=== PATIENT | male | born 1980 | race Caucasian/White ===

== ENCOUNTER 2024-04-01 08:28 | Outpatient (AMB) | payer MEDICAID, SELFPAY ==
[2024-04-01 08:39] VITALS: BP 103/69; PULSE 68; RESP 19; TEMP 36.3; O2SAT 95; BMI 33.7
--- NOTE | 2024-04-01 08:39 | PD.ORTHCLVIS ---
Vital signs 04/01/24 08:39 Height 1.8 m Height Method Stated Weight 109.769 kg Weight Measurement Method Standing Scale BMI 33.7 BP 103/69 Blood Pressure Source Automatic Cuff Blood Pressure Location Left Upper Arm Position Sitting Respiration 19 Pulse 68 Pulse Source Monitor Temp 97.4 F Temp Source Temporal Artery Scan Pulse Oximetry (%) 95 Oxygen Delivery Method Room Air Med/Allergies Allergies & Medications Allergies No Known Allergies Allergy (Verified 04/01/24 08:40) Medication Reconciliation empagliflozin 10 mg tablet (Jardiance) 10 mg PO QAM 04/01/24 [History Confirmed 04/01/24] lisinopril 10 mg tablet 10 mg PO QDAY 04/01/24 [History Confirmed 04/01/24] Exam Exam Patient is in no acute distress and is cooperative with the examination today. Breathing is nonlabored. In no respiratory distress. Patient has no paraspinal tenderness. Spinal deformity cannot be appreciated. The gait of the patient is nonantalgic Bilateral extremities were evaluated and demonstrates sensation intact to light touch. Palpable pedal pulses are present. No significant edema is present. Bilateral knees were examined and the patient has full strength and range of motion.. The right hip was examined. Patient was able to flex to 90 degrees, adduct to 30 degrees, abduct to 40 degrees, internally rotate to 20 degrees, and externally rotate to 20 degrees. Patient has a negative logroll. Stinchfield is negative. The patient is nontender diffusely to touch. The left hip was examined. Patient was able to flex to 90 degrees, adduct to 30 degrees, abduct to 40 degrees, internally rotate to 0 degrees, and externally rotate to 10 degrees. Patient has a positive logroll Assessment and Plan Problem List (1) Arthritis of left hip: Status: Acute Plan: Patient has a 45-year history of left hip arthritis of significant severity. He is homeless with an uncontrolled hemoglobin A1c as well as a not optimal social situation as he is homeless. He is not currently a candidate for a total hip replacement. He is also a drug abuser and last used it 4 months ago. Both socially and medically, he is not a candidate for total hip replacement at this time. We discussed with him that he is awfully obligated to treat to get his medical health figured out before we discussed total hip replacement. 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) MA Intake Visit Data Collection New Patient or Established: New Patient (never been to [facility]) Reason for Visit:: LEFT HIP PAIN Seen by Clinical Staff ONLY (RN/MA): No Medium Cycle Salesperson Required: No PCP or OBGYN visit in last 3 months: Yes Hx Now: No Do You Feel Safe at Home: Yes Authorities Contacted: N/A Questionairres Past Medical History Past Medical History Have you ever been diagnosed with any of the following: Endocrine Problems Diabetes Mellitus Type 1: Yes Subjective Visit Visit for: new patient and hip (LEFT) Immunization / Flu Flu Vaccine in the Last 12 Months: Yes Flu Vaccine Exclusion Criteria: Already Received History of Present Illness Chief complaint: Left hip pain Manuel is a 43-year-old male who is homeless with left hip pain. This been ongoing for at least 6 years. He reports a lot of back pain as well. He is in a recovery home now and has a 25-year history of being homeless. His last drug use with methamphetamine was 4 months ago. He also has uncontrolled diabetes and has had recurrent hospitalizations most recently for kidney failure. Personal History Occupation: NONE Pain Pain level (0-10): 6 Pain duration: WITH MOVEMENT Pain location: groin Pain quality: other (specify) (POPPING) Pain timing: increases with activity and stairs Associated signs & symptoms: none Ambulatory data Ambulatory device: walker Treatments Improvement with previous injections: No Improvement with PT: No Improvement with NSAIDS: no Review of Systems Review of Systems: All systems negative unless otherwise noted in HPI.
== END 2024-04-01 08:37 | disposition home or self-care (01) ==
LOC: HODSRG 08:28
PROVIDERS: Supervising Provider Orthopaedic Surgery Adult Reconstructive Orthopaedic Surgery; Visit Provider Orthopaedic Surgery Adult Reconstructive Orthopaedic Surgery
DX: M16.12 Unilateral primary osteoarthritis, left hip (principal); E10.9 Type 1 diabetes mellitus without complications; M25.552 Pain in left hip; Z59.00 Homelessness unspecified
CPT/HCPCS: 99204; G0463

== ENCOUNTER 2024-06-09 14:19 | Outpatient (AMB) | payer MEDICAID, SELFPAY ==
--- NOTE | 2024-06-09 14:40 | ORTHONT_ITS ---
Vital signs 06/09/24 14:41 Height 1.8 m Height Method Stated Weight 116.602 kg Weight Measurement Method Standing Scale BMI 35.9 BP 161/82 H Blood Pressure Source Automatic Cuff Blood Pressure Location Left Upper Arm Position Sitting Respiration 18 Pulse 68 Pulse Source Monitor Temp 97.6 F Temp Source Temporal Artery Scan Pulse Oximetry (%) 95 Oxygen Delivery Method Room Air Med/Allergies Allergies & Medications Allergies No Known Allergies Allergy (Verified 06/09/24 14:41) Medication Reconciliation empagliflozin 10 mg tablet (Jardiance) 10 mg PO QAM 04/01/24 [History Confirmed 06/09/24] lisinopril 10 mg tablet 10 mg PO QDAY 04/01/24 [History Confirmed 06/09/24] Exam Exam Patient is in no acute distress and is cooperative with the examination today. Breathing is nonlabored. In no respiratory distress. Patient has no paraspinal tenderness. Spinal deformity cannot be appreciated. The gait of the patient is nonantalgic Bilateral extremities were evaluated and demonstrates sensation intact to light touch. Palpable pedal pulses are present. No significant edema is present. Bilateral knees were examined and the patient has full strength and range of motion.. The right hip was examined. Patient was able to flex to 90 degrees, adduct to 30 degrees, abduct to 40 degrees, internally rotate to 20 degrees, and externally rotate to 20 degrees. Patient has a negative logroll. Stinchfield is negative. The patient is nontender diffusely to touch. The left hip was examined. Patient was able to flex to 90 degrees, adduct to 30 degrees, abduct to 40 degrees, internally rotate to 0 degrees, and externally rotate to 10 degrees. Patient has a positive logroll Assessment and Plan Problem List (1) Arthritis of left hip: Status: Acute Plan: Patient has a 46-year history of left hip arthritis of significant severity. He is homeless with an uncontrolled hemoglobin A1c as well as a not optimal social situation as he is homeless. He is not currently a candidate for a total hip replacement. He is also a drug abuser and last used it 4 months ago. Both socially and medically, he is not a candidate for total hip replacement at this time. He reports that he is doing well and recently had over an 80 pound weight loss. His last sugars were approximately 8.9. We will repeat his hemoglobin A1c. I would also like to get new left hip x-rays as it has been quite a while. He has a lot going on medically including kidney issues as well as mental health issues. His social situation has improved as he is no longer homeless and has stable housing now. Office Procedures [facility] Level of Care Nursing/Assessment Patient Status: Established Patient Nursing Assessment/Reassesment: Medication Reconciliation, Update PMH in EMR and Vital Signs Coordination of Care: Complex Care/Chronic Disease 5 or more, Education Complex Pt/Fam, Consent,records obtained, informed consent, Results/Orders obtained and Staff clarify orders Established Patient Charge Established Patient Point Assignment: 105 Established Patient Point Charge: EP Level 3 (80-115) MA Intake Visit Data Collection New Patient or Established: Established Patient (seen at [facility] within 3 years) Reason for Visit:: LEFT HIP PAIN F/U Seen by Clinical Staff ONLY (RN/MA): No Contract Engineer Required: No PCP or OBGYN visit in last 3 months: Yes Hx Now: No Do You Feel Safe at Home: Yes Authorities Contacted: N/A Questionairres Past Medical History Past Medical History Have you ever been diagnosed with any of the following: Respiratory Problems Smoking: No Smoking Exposure: No Endocrine Problems Diabetes Mellitus Type 1: Yes Subjective Visit Visit for: follow up visit, hip and x-rays Immunization / Flu Flu Vaccine in the Last 12 Months: No Flu Vaccine Exclusion Criteria: No Exclusion Criteria History of Present Illness Chief complaint: Left hip pain Manuel is a 43-year-old male who is homeless with left hip pain. This been ongoing for at least 6 years. He reports a lot of back pain as well. He is in a recovery home now and has a 25-year history of being homeless. His last drug use with methamphetamine was 6 months ago. He also has uncontrolled diabetes and has had recurrent hospitalizations most recently for kidney failure. Personal History Occupation: NONE Pain Pain level (0-10): 7 Pain duration: WITH MOVEMENT Pain location: outside (lateral) and posterior Pain quality: sharp, dull and aching Pain timing: night, increases with activity and stairs Associated signs & symptoms: weakness Ambulatory data Ambulatory device: walker Treatments Improvement with previous injections: No Improvement with PT: No Improvement with NSAIDS: no Review of Systems Review of Systems: All systems negative unless otherwise noted in HPI.
[2024-06-09 14:41] VITALS: BP 161/82; PULSE 68; RESP 18; TEMP 36.4; O2SAT 95; BMI 35.9
--- NOTE | 2024-06-09 15:02 | XR_ITS ---
Examination:Left hip AP, lateral, AP pelvis 3 views Technique: Hip AP lateral, AP pelvis, 3 views Exam date and time:25 at 1521 hours INDICATIONS: Left hip pain 6 years FINDINGS: Advanced left hip osteoarthritis, severe narrowing of the hip joint with subarticular sclerosis Radiolucencies in fragmentation of the femoral head suspicious for avascular necrosis Moderate right hip osteoarthritis Bones of the pelvis intact IMPRESSION: Severe left hip osteoarthritis Suspicious for avascular necrosis left femoral head.
== END 2024-06-09 15:04 | disposition home or self-care (01) ==
LOC: HODSRG 14:19
PROVIDERS: Supervising Provider Orthopaedic Surgery Adult Reconstructive Orthopaedic Surgery; Visit Provider Orthopaedic Surgery Adult Reconstructive Orthopaedic Surgery
DX: M16.12 Unilateral primary osteoarthritis, left hip (principal); M25.552 Pain in left hip; E11.9 Type 2 diabetes mellitus without complications
CPT/HCPCS: 73502; 99213; G0463

== ENCOUNTER 2024-07-15 09:35 | Outpatient (AMB) | payer MEDICAID, SELFPAY ==
--- NOTE | 2024-07-15 09:44 | ORTHONT_ITS ---
Vital signs 07/15/24 09:51 Height 1.8 m Height Method Stated Weight 118.898 kg Weight Measurement Method Standing Scale BMI 36.6 BP 136/75 H Blood Pressure Source Automatic Cuff Blood Pressure Location Left Upper Arm Position Sitting Respiration 18 Pulse 70 Pulse Source Monitor Temp 96.2 F L Temp Source Temporal Artery Scan Pulse Oximetry (%) 100 Oxygen Delivery Method Room Air Med/Allergies Allergies & Medications Allergies No Known Allergies Allergy (Verified 07/15/24 09:52) Medication Reconciliation empagliflozin 10 mg tablet (Jardiance) 10 mg PO QAM 04/01/24 [History Confirmed 07/15/24] lisinopril 10 mg tablet 10 mg PO QDAY 04/01/24 [History Confirmed 07/15/24] Exam Exam Patient is in no acute distress and is cooperative with the examination today. Breathing is nonlabored. In no respiratory distress. Patient has no paraspinal tenderness. Spinal deformity cannot be appreciated. The gait of the patient is nonantalgic Bilateral extremities were evaluated and demonstrates sensation intact to light touch. Palpable pedal pulses are present. No significant edema is present. Bilateral knees were examined and the patient has full strength and range of motion.. The right hip was examined. Patient was able to flex to 90 degrees, adduct to 30 degrees, abduct to 40 degrees, internally rotate to 20 degrees, and externally rotate to 20 degrees. Patient has a negative logroll. Stinchfield is negative. The patient is nontender diffusely to touch. The left hip was examined. Patient was able to flex to 90 degrees, adduct to 30 degrees, abduct to 40 degrees, internally rotate to 0 degrees, and externally rotate to 10 degrees. Patient has a positive logroll Assessment and Plan Problem List (1) Arthritis of left hip: Status: Acute Plan: Patient has a 46-year history of left hip arthritis of significant severity. He is homeless with an uncontrolled hemoglobin A1c as well as a not optimal social situation as he is homeless. He is not currently a candidate for a total hip replacement. He is also a drug abuser and last used it 4 months ago. Both socially and medically, he is not a candidate for total hip replacement at this time. He reports that he is doing well and recently had over an 80 pound weight loss. He still has a lot of psychological and mental issues that will need to be taken care of before surgery. I would like to be at least 1 year without drugs before proceeding. Office Procedures [facility] Level of Care Nursing/Assessment Patient Status: Established Patient Nursing Assessment/Reassesment: Medication Reconciliation, Update PMH in EMR and Vital Signs Coordination of Care: Complex Care and Chronic Disease 1-5, Education Complex Pt/Fam, Consent,records obtained, informed consent, Results/Orders obtained and Staff clarify orders Established Patient Charge Established Patient Point Assignment: 95 Established Patient Point Charge: EP Level 3 (80-115) MA Intake Visit Data Collection New Patient or Established: Established Patient (seen at [facility] within 3 years) Reason for Visit:: FOLLOW UP SUGAR Seen by Clinical Staff ONLY (RN/MA): No 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: No PCP or OBGYN visit in last 3 months: Yes Hx Now: No Do You Feel Safe at Home: Yes Authorities Contacted: N/A Questionairres Past Medical History Past Medical History Have you ever been diagnosed with any of the following: Respiratory Problems Smoking: No Smoking Exposure: No Endocrine Problems Diabetes Mellitus Type 1: Yes Subjective Visit Visit for: follow up visit Immunization / Flu Flu Vaccine in the Last 12 Months: No Flu Vaccine Exclusion Criteria: No Exclusion Criteria History of Present Illness Chief complaint: Left hip pain Manuel is a 43-year-old male who is homeless with left hip pain. This been ongoing for at least 6 years. He reports a lot of back pain as well. He is in a recovery home now and has a 25-year history of being homeless. His last drug use with methamphetamine was 6 months ago. He also has uncontrolled diabetes and has had recurrent hospitalizations most recently for kidney failure. Personal History Occupation: NONE Pain Pain level (0-10): 6 Pain duration: COMES AND GOES Pain location: inside (medial), outside (lateral) and anterior Pain quality: dull and aching Pain timing: increases with activity Associated signs & symptoms: none Ambulatory data Ambulatory device: walker Treatments Improvement with previous injections: No Improvement with PT: No Improvement with NSAIDS: no Review of Systems Review of Systems: All systems negative unless otherwise noted in HPI.
[2024-07-15 09:51] VITALS: BP 136/75; PULSE 70; RESP 18; TEMP 35.7; O2SAT 100; BMI 36.6
== END 2024-07-15 10:26 | disposition home or self-care (01) ==
LOC: HODSRG 09:35
PROVIDERS: Supervising Provider Orthopaedic Surgery Adult Reconstructive Orthopaedic Surgery; Visit Provider Orthopaedic Surgery Adult Reconstructive Orthopaedic Surgery
DX: M16.12 Unilateral primary osteoarthritis, left hip (principal); M25.552 Pain in left hip; M54.9 Dorsalgia, unspecified; E10.9 Type 1 diabetes mellitus without complications; N19 Unspecified kidney failure; Z59.00 Homelessness unspecified
CPT/HCPCS: 99213; G0463

== ENCOUNTER 2025-02-05 13:11 | Outpatient (AMB) | payer MEDICAID, SELFPAY ==
--- NOTE | 2025-02-05 13:28 | ORTHONT_ITS ---
Vital signs 02/05/25 13:29 Height 1.8 m Height Method Measured Weight 115.893 kg Weight Measurement Method Standing Scale BMI 35.7 BP 126/73 Blood Pressure Source Automatic Cuff Blood Pressure Location Left Upper Arm Position Sitting Respiration 18 Pulse 66 Pulse Source Monitor Temp 97.6 F Temp Source Temporal Artery Scan Pulse Oximetry (%) 96 Oxygen Delivery Method Room Air Med/Allergies Allergies & Medications Allergies No Known Allergies Allergy (Verified 02/05/25 13:30) Medication Reconciliation empagliflozin 10 mg tablet (Jardiance) 10 mg PO QAM 04/01/24 [History Confirmed 02/05/25] lisinopril 10 mg tablet 10 mg PO QDAY 04/01/24 [History Confirmed 02/05/25] Exam Exam Patient is in no acute distress and is cooperative with the examination today. Breathing is nonlabored. In no respiratory distress. Patient has no paraspinal tenderness. Spinal deformity cannot be appreciated. The gait of the patient is nonantalgic Bilateral extremities were evaluated and demonstrates sensation intact to light touch. Palpable pedal pulses are present. No significant edema is present. Bilateral knees were examined and the patient has full strength and range of motion.. The right hip was examined. Patient was able to flex to 90 degrees, adduct to 30 degrees, abduct to 40 degrees, internally rotate to 20 degrees, and externally rotate to 20 degrees. Patient has a negative logroll. Stinchfield is negative. The patient is nontender diffusely to touch. The left hip was examined. Patient was able to flex to 90 degrees, adduct to 30 degrees, abduct to 40 degrees, internally rotate to 0 degrees, and externally rotate to 10 degrees. Patient has a positive logroll Left knee demonstrates varus deformity. He is tender to palpation medially Assessment and Plan Problem List (1) Arthritis of left hip: Status: Acute Plan: Patient has a 46-year history of left hip arthritis of significant severity. He is homeless with an uncontrolled hemoglobin A1c as well as a not optimal social situation as he is homeless. He is not currently a candidate for a total hip replacement. Both socially and medically, he is not a candidate for total hip replacement at this time. We will get x-rays of his left knee and go from there. Office Procedures [facility] Level of Care Nursing/Assessment Patient Status: Established Patient Nursing Assessment/Reassesment: Medication Reconciliation, Update PMH in EMR and Vital Signs Coordination of Care: Complex Care and Chronic Disease 1-5, Education Complex Pt/Fam, Consent,records obtained, informed consent, Results/Orders obtained and Staff clarify orders Established Patient Charge Established Patient Point Assignment: 95 Established Patient Point Charge: EP Level 3 (80-115) MA Intake Visit Data Collection New Patient or Established: Established Patient (seen at [facility] within 3 years) Reason for Visit:: FOLLOW UP Seen by Clinical Staff ONLY (RN/MA): No Television Writer Required: No PCP or OBGYN visit in last 3 months: Yes Hx Now: No Do You Feel Safe at Home: Yes Authorities Contacted: N/A Questionairres Past Medical History Past Medical History Have you ever been diagnosed with any of the following: Respiratory Problems Smoking: No Smoking Exposure: No Endocrine Problems Diabetes Mellitus Type 1: Yes Subjective Visit Visit for: follow up visit Immunization / Flu Flu Vaccine in the Last 12 Months: No Flu Vaccine Exclusion Criteria: No Exclusion Criteria History of Present Illness Chief complaint: FOLLOW UP LEFT HIP PAIN Manuel is a 43-year-old male who is homeless with left hip pain. This been ongoing for at least 6 years. He reports a lot of back pain as well. He is in a recovery home now and has a 25-year history of being homeless. His last drug use with methamphetamine was 6 months ago. He also has uncontrolled diabetes and has had recurrent hospitalizations most recently for kidney failure. He is working on getting a home on the first floor. We will get x-rays and see him back in 2 months as he is now having knee pain. He reports his left knee is curving inward Personal History Occupation: NONE Pain Pain level (0-10): 6 Pain duration: COMES AND GOES Pain location: inside (medial), outside (lateral) and anterior Pain quality: dull and aching Pain timing: increases with activity Associated signs & symptoms: none Ambulatory data Ambulatory device: walker Treatments Improvement with previous injections: No Improvement with PT: No Improvement with NSAIDS: no Review of Systems Review of Systems: All systems negative unless otherwise noted in HPI.
[2025-02-05 13:29] VITALS: BP 126/73; PULSE 66; RESP 18; TEMP 36.4; O2SAT 96; BMI 35.7
--- NOTE | 2025-02-05 13:47 | XR_ITS ---
EXAMINATION: Bilateral knees AP single view Left knee PA lateral axial 3 views TECHNIQUE: Bilateral AP knees standing single view Left knee PA flexion standing, standing lateral, axial left knee 3 views total 4 views Date and time: February 05, 2025, 1427 hours INDICATION: Left knee pain beginning 4 years ago FINDINGS: Mild to moderate osteoarthritis medial lateral joint spaces right knee Moderate osteoarthritis medial joint space left knee The axial film is not a true axial film of the left knee IMPRESSION: Limited study Moderate osteoarthritis medial joint space left knee
--- NOTE | 2025-02-05 13:47 | XR_ITS ---
Examination: Left hip AP, lateral, AP pelvis 3 views Technique: Hip AP lateral, AP pelvis, 3 views Exam date and time: February 05, 2025, 1420 hours, comparison June 09, 2024 INDICATION: Left hip pain for years. FINDINGS: Severe left hip osteoarthritis Fragmentation and flattening of the left femoral head Moderate right hip osteoarthritis Bones of the pelvis intact IMPRESSION: Severe left hip osteoarthritis Significant avascular necrosis left femoral head.
== END 2025-02-05 14:00 | disposition home or self-care (01) ==
PROVIDERS: Supervising Provider Orthopaedic Surgery Adult Reconstructive Orthopaedic Surgery; Visit Provider Orthopaedic Surgery Adult Reconstructive Orthopaedic Surgery
DX: M16.12 Unilateral primary osteoarthritis, left hip (principal); M87.852 Other osteonecrosis, left femur; M17.12 Unilateral primary osteoarthritis, left knee; M25.552 Pain in left hip; Z59.00 Homelessness unspecified
CPT/HCPCS: 73502; 73564; 99213; G0463